=== PATIENT | female | born 1960 | race Caucasian/White ===

== ENCOUNTER → 2017-05-19 | Outpatient (CLI) | payer BC ==
--- NOTE | 2017-05-20 09:51 | MM ---
Reason for exam: screening (asymptomatic). Last mammogram was performed 1 year and 7 months ago. History: Patient is postmenopausal. Family history of breast cancer in maternal aunt. Benign core biopsy of the left breast, June 07, 1998. Benign excisional biopsy of the left breast. Excisional biopsy of the right breast. Physical Findings: A clinical breast exam by your physician is recommended on an annual basis and results should be correlated with mammographic findings. MG 3D Screening Mammo W/Cad Bilateral CC and MLO view(s) were taken. Prior study comparison: October 23, 2015, bilateral MG screening mammo w CAD. August 11, 2014, bilateral MG diagnostic mammo w CAD PASCUAL. August 11, 2014, right breast US breast RT. The breast tissue is heterogeneously dense. This may lower the sensitivity of mammography. Finding: There are typically benign vascular calcifications in both breasts. There is no discrete abnormality. ASSESSMENT: Negative, BI-RAD 1 RECOMMENDATION: Routine screening mammogram of both breasts in 1 year.
== END | disposition home or self-care (01) ==
LOC: RADMAMWWP 16:18
PROVIDERS: ATTEND Obstetrics & Gynecology
DX: Z12.31 Encounter for screening mammogram for malignant neoplasm of breast (principal)
CPT/HCPCS: 77063; G0202

== ENCOUNTER → 2018-10-15 | Outpatient (CLI) | payer BC ==
--- NOTE | 2018-10-19 09:30 | MM ---
Reason for exam: screening (asymptomatic). Last mammogram was performed 1 year and 5 months ago. History: Patient is postmenopausal. Family history of breast cancer in maternal aunt. Benign core biopsy of the left breast, June 07, 1998. Benign excisional biopsy of the left breast. Excisional biopsy of the right breast. Physical Findings: A clinical breast exam by your physician is recommended on an annual basis and results should be correlated with mammographic findings. MG 3D Screening Mammo W/Cad Bilateral CC and MLO view(s) were taken. Prior study comparison: May 19, 2017, bilateral MG 3d screening mammo w/cad. October 23, 2015, bilateral MG screening mammo w CAD. The breast tissue is heterogeneously dense. This may lower the sensitivity of mammography. There is chronic nodularity in the right breast better seen on 3D images and in the left breast upper outer quadrant. No significant changes when compared with prior studies. ASSESSMENT: Benign, BI-RAD 2 RECOMMENDATION: Routine screening mammogram of both breasts in 1 year.
== END | disposition home or self-care (01) ==
LOC: RADMAMWWP 16:08
PROVIDERS: ATTEND Obstetrics & Gynecology
DX: Z12.31 Encounter for screening mammogram for malignant neoplasm of breast (principal)
CPT/HCPCS: 77063; 77067

== ENCOUNTER → 2020-06-28 | Outpatient (CLI) | payer BC ==
--- NOTE | 2020-06-28 10:37 | MM ---
Reason for exam: clinical finding. Last mammogram was performed 1 year and 8 months ago. History: Patient is postmenopausal. Family history of breast cancer in maternal aunt. Benign core biopsy of the left breast, June 07, 1998. Benign excisional biopsy of the left breast. Excisional biopsy of the right breast. Physical Findings: Nurse Summary: 1cm nodule in the right breast at 10 o'clock (nurse tim). MG 3D Diag Mammo W/Cad PASCUAL Bilateral CC and MLO view(s) were taken. XCCL view(s) were taken of the right breast. Prior study comparison: October 15, 2018, bilateral MG 3d screening mammo w/cad. May 19, 2017, bilateral MG 3d screening mammo w/cad. Finding #1: There are circumscribed oval masses in both breasts. Finding #2: There are typically benign calcifications in both breasts. These results were verbally communicated with the patient and result sheet given to the patient on 06/28/20. ASSESSMENT: Incomplete: need additional imaging evaluation, BI-RAD 0 RECOMMENDATION: Ultrasound of the right breast.
--- NOTE | 2020-06-28 10:39 | USB ---
Reason for exam: additional evaluation requested from abnormal screening. History: Patient is postmenopausal. Family history of breast cancer in maternal aunt. Benign core biopsy of the left breast, June 07, 1998. Benign excisional biopsy of the left breast. Excisional biopsy of the right breast. US Breast RT Right complete breast ultrasound includes all four quadrants, the retroareolar region and axilla. Finding demonstrates a 1.9 x 1.0 x 1.9cm oval, solid, hyperechoic lesion at 5 o'clock. These results were verbally communicated with the patient and result sheet given to the patient on 06/28/20. ASSESSMENT: Benign, BI-RAD 2 (likely lipoma) RECOMMENDATION: Routine screening mammogram of both breasts in 1 year.
== END | disposition home or self-care (01) ==
LOC: RADMAMWWP 06:58
PROVIDERS: ATTEND Obstetrics & Gynecology
DX: N63.10 Unspecified lump in the right breast, unspecified quadrant (principal); N63.20 Unspecified lump in the left breast, unspecified quadrant; R92.8 Other abnormal and inconclusive findings on diagnostic imaging of breast; Z80.3 Family history of malignant neoplasm of breast
CPT/HCPCS: 77062; 77066

== ENCOUNTER → 2021-01-07 | Day surgery (SDC) | payer BC ==
[2021-01-03 15:46] VITALS: BMI 28.2
[~2021-01-07] MED LIST: SODIUM CHLORIDE 0.9% 1,000 ML IV SCH
[2021-01-07 11:01] VITALS: BP 134/73; PULSE 54; RESP 16; TEMP 98.1
--- NOTE | 2021-01-07 11:46 | P.EPPROC ---
- EP Procedure Note Electrophysiology Procedure Note: Diagnosis Persistent atrial fibrillation, symptomatic Procedure planned Electrical cardioversion after loading with flecainide 100 mg twice daily Procedure details Procedure was canceled Patient was in sinus rhythm 100 mg twice a day flecainide The twelve-lead EKG shows sinus mechanism normal OR narrow QRS normal ST segments Impression Chemical conversion to sinus rhythm with flecainide 100 mg twice daily Plan Stop Cardizem completely Reduce Toprol-XL to 25 mg by mouth once daily only Reduce flecainide to 50 mg twice daily If she has a breakthrough episode of atrial fibrillation she will wait for about 20 minutes If it does not terminate spontaneously she will take an extra dose of flecainide, 50 mg 1 over above her regular dose I will see her in the office in about 2-3 weeks
== END | disposition home or self-care (01) ==
LOC: CATHEP 10:22
PROVIDERS: ATTEND Internal Medicine Clinical Cardiac Electrophysiology
DX: I48.19 Other persistent atrial fibrillation (principal); Z53.8 Procedure and treatment not carried out for other reasons; Z79.899 Other long term (current) drug therapy; Z79.01 Long term (current) use of anticoagulants

== ENCOUNTER → 2021-08-21 | Outpatient (CLI) | payer BC ==
--- NOTE | 2021-08-26 14:38 | MM ---
Reason for exam: screening (asymptomatic). Last mammogram was performed 1 year and 2 months ago. History: Patient is postmenopausal. Family history of breast cancer in maternal aunt. Benign core biopsy of the left breast, June 07, 1998. Benign excisional biopsy of the left breast. Excisional biopsy of the right breast. Physical Findings: A clinical breast exam by your physician is recommended on an annual basis and results should be correlated with mammographic findings. MG 3D Screening Mammo W/Cad Bilateral CC and MLO view(s) were taken. XCCL view(s) were taken of the right breast. Prior study comparison: June 28, 2020, bilateral MG 3d diag mammo w/cad PASCUAL. October 15, 2018, bilateral MG 3d screening mammo w/cad. The breast tissue is heterogeneously dense. This may lower the sensitivity of mammography. No significant changes when compared with prior studies. ASSESSMENT: Benign, BI-RAD 2 RECOMMENDATION: Routine screening mammogram of both breasts in 1 year.
== END | disposition home or self-care (01) ==
LOC: RADMAMWWP 16:01
PROVIDERS: ATTEND Obstetrics & Gynecology
DX: Z12.31 Encounter for screening mammogram for malignant neoplasm of breast (principal); Z78.0 Asymptomatic menopausal state; Z80.3 Family history of malignant neoplasm of breast
CPT/HCPCS: 77063; 77067

== ENCOUNTER → 2021-12-31 | Outpatient (CLI) | payer BC ==
--- NOTE | 2021-12-31 12:52 | BD ---
EXAMINATION TYPE: Axial Bone Density DATE OF EXAM: 12/31/2021 COMPARISON: DEXA bone scan 2010 CLINICAL HISTORY: 61 year old Female. ICD-10 CODE: M81.0 AGE RELATED OSTEOPOROSIS Height: 66 Weight: 167.9 FRAX RISK QUESTIONS: Alcohol (3 or more units per day): NO Family History (Parent hip fracture): NO Glucocorticoids (More than 3mos): no (Ex: prednisone, prednisolone, methylprednisolone, dexamethasone, and hydrocortisone). History of Fracture in Adulthood: yes Secondary Osteoporosis: 1. Type 1 Diabetes: no 2. Hyperthyroidism: no 3. Menopause before 45: yes 4. Malnutrition: no 5. Chronic liver disease: no Rheumatoid Arthritis: no Current Tobacco Use: no RISK FACTORS HISTORY OF: History of Wrist Fracture: rt wrist When: as a child Surgery to Spine/Hip(right/left)/Wrist (right/left): no Family History of Osteoporosis: no Active: yes Diet low in dairy products/other sources of calcium: no Postmenopausal woman: yes Lost more than 2 inches in height since high school: no MEDICATIONS: Additional History: EXAM MEASUREMENTS: Bone mineral densitometry was performed using the [employer]encia System. Bone mineral density as measured about the Lumbar spine is: ----- L1-L4(G/cm2): 1.004 T Score Values are as follows: ----- L1: -0.8 ----- L2: -2.0 ----- L3: -1.6 ----- L4: -1.5 ----- L1-L4: -1.5 Bone mineral density has: decreased -13.2 % since study of: 08.11.2011 Bone mineral density about the R hip (g/cm2): 0.775 Bone mineral density about the L hip (g/cm2): 0.886 T Score values are as follows: -----R Neck: -1.9 -----L Neck: -1.1 -----R Total: -0.8 -----L Total: -1.0 Bone mineral density has: decreased -6.7 % since study of: 08.11.2011 Bone mineral density about the L Wrist (g/cm2): 0.609 T Score values are as follows: -----Dist. R+U: -1.1 -----Prox. R+U: -1.4 -----Radius total: -1.1 Bone mineral density : baseline FRAX%s: The graph provided illustrates a 16.6% chance for a major osteoporotic fx and a 2.3% chance f or the hips probability for fx in 10 years time. IMPRESSION: Osteopenia (T Score between -2.5 and -1) is now present. There is slightly increased risk of fracture and the patient may be considered for treatment. Re-Screen 2-5 years. NOTE: T-SCORE=SD OF THE YOUNG ADULT MEAN.
== END | disposition home or self-care (01) ==
LOC: RADBDWWP 11:12
PROVIDERS: ATTEND Internal Medicine Geriatric Medicine
DX: M85.89 Other specified disorders of bone density and structure, multiple sites (principal)
CPT/HCPCS: 77080

== ENCOUNTER → 2023-05-07 | Outpatient (CLI) | payer MEDICARE ==
[2023-05-07 16:22] LABS: Basophils # (A) 0.04 X 10*3/uL (0.00-0.10); Basophils % (A) 0.8 %; Eosinophils # (A) 0.15 X 10*3/uL (0.04-0.35); Eosinophils % (A) 2.8 %; HCT 37.9 % (37.2-46.3); HGB 12.3 d/dL (12.0-15.0); Lymphocytes # (A) 1.34 X 10*3/uL (0.90-5.00); Lymphocytes % (A) 25.3 %; MCH 32.6 pg (27.0-32.0); MCHC 32.5 d/dL (32.0-37.0); MCV 100.5 FL (80.0-97.0); Mean Platelet Volume 10.4 FL (9.5-12.2); Monocytes # (A) 0.77 X 10*3/uL (0.20-1.00); Monocytes % (A) 14.6 %; NRBC Per 100 WBC 0 X 10*3/uL (0.00-0.01); Neutrophils # (A) 2.98 X 10*3/uL (1.80-7.70); Neutrophils % (A) 56.3 %; Platelet Count 194 X 10*3/uL (140-440); RBC 3.77 X 10*6/uL (4.10-5.20); RDW 12.9 % (11.5-14.5); WBC 5.29 X 10*3/uL (4.50-10.00)
[2023-05-07 16:38] LABS: ALT 122 U/L (8-44); AST 51 U/L (13-35); Albumin 4.2 d/dL (3.8-4.9); Albumin/Globulin Ratio 1.83 Ratio (1.60-3.17); Alkaline Phosphatase 76 U/L (41-126); BUN/Creat Ratio 20.14 Ratio (12.00-20.00); Blood Urea Nitrogen 14.1 mg/dL (9.0-27.0); Calcium 9.3 mg/dL (8.7-10.3); Carbon Dioxide 25.9 mmol/L (21.6-31.8); Chloride 106 mmol/L (96-109); Globulin 2.3 d/dL (1.6-3.3); Glucose 100 mg/dL (70-110); LDL Cholesterol,Calculated 132.7 mg/dL (0.0-131.0); Magnesium 2.1 mg/dL (1.5-2.4); Potassium 4.6 mmol/L (3.5-5.5); Sodium 142 mmol/L (135-145); Total Bilirubin 0.6 mg/dL (0.3-1.2); Total Protein 6.5 d/dL (6.2-8.2)
== END | disposition home or self-care (01) ==
LOC: LABWHC1 08:57
PROVIDERS: ATTEND Internal Medicine Clinical Cardiac Electrophysiology
DX: I10 Essential (primary) hypertension (principal); I48.19 Other persistent atrial fibrillation; E78.5 Hyperlipidemia, unspecified
CPT/HCPCS: 36415; 80053; 80061; 83735; 84443; 85025

== ENCOUNTER → 2023-05-07 | Outpatient (CLI) | payer MEDICARE ==
--- NOTE | 2023-05-09 17:08 | MM ---
Reason for Exam: Screening (asymptomatic). Last mammogram was performed 1 year(s) and 9 month(s) ago. Patient History: Menarche at age 11. First Full-Term at age 20. Postmenopausal. Excisional Biopsy on the Right side. Benign Excisional Biopsy on the left side. 06/07/1998, Benign Core Biopsy on the left side. Maternal aunt had breast cancer, age 60. Risk Values: Love 5 year model risk: 2.2%. NCI Lifetime model risk: 8.3%. Prior Study Comparison: 10/15/2018 Bilateral Screening Mammogram, [facility]. 06/28/2020 Bilateral Diagnostic Mammogram, [facility]. 08/21/2021 Bilateral Screening Mammogram, [facility]. Tissue Density: The breast tissue is heterogeneously dense. This may lower the sensitivity of mammography. Findings: Analyzed By CAD. There is no suspicious group of microcalcifications or new suspicious mass in either breast. Overall Assessment: Benign, BI-RAD 2 Management: Screening Mammogram of both breasts in 1 year. . Patient should continue monthly self-breast exams. A clinical breast exam by your physician is recommended on an annual basis. This exam should not preclude additional follow-up of suspicious palpable abnormalities. Note on Love scores and lifetime risk: 1. A Love score greater than 3% is considered moderate risk. If this is the case, consider specialist referral to assess eligibility for a risk reducing agent. 2. If overall lifetime risk for the development of breast cancer is 20% or higher, the patient may qualify for future screening with alternating mammogram and breast MRI. Electronically signed and approved by: Noé Flower M.D. Radiologist
== END | disposition home or self-care (01) ==
LOC: RADMAMWWP 16:02
PROVIDERS: ATTEND Obstetrics & Gynecology
DX: Z12.31 Encounter for screening mammogram for malignant neoplasm of breast (principal); Z78.0 Asymptomatic menopausal state; Z80.3 Family history of malignant neoplasm of breast
CPT/HCPCS: 77063; 77067

== ENCOUNTER 2023-06-09 07:41 | Day surgery (SDC) | payer MEDICARE ==
[2023-06-05 16:08] VITALS: BMI 29.2
[2023-06-09 08:33] LABS: Basophils % (A) 1 %; Eosinophils # (A) 0.1 k/uL (0-0.7); Eosinophils % (A) 3 %; HCT 45.2 % (34.0-46.0); HGB 14.6 gm/dL (11.4-16.0); Lymphocytes # (A) 1.3 k/uL (1.0-4.8); Lymphocytes % (A) 32 %; MCHC 32.3 g/dL (31.0-37.0); Mean Platelet Volume 7.8; Monocytes # (A) 0.4 k/uL (0-1.0); Monocytes % (A) 10 %; Neutrophils # (A) 2.1 k/uL (1.3-7.7); Neutrophils % (A) 52 %; Platelet Count 217 k/uL (150-450); RBC 4.43 m/uL (3.80-5.40); WBC 4.1 k/uL (3.8-10.6)
[2023-06-09 08:44] LABS: African American GFR (CKD) >90 (>60 ml/min/1.73 sqM); Anion Gap 10 mmol/L; Blood Urea Nitrogen 16 mg/dL (7-17); Calcium 9.6 mg/dL (8.4-10.2); Carbon Dioxide 25 mmol/L (22-30); Chloride 105 mmol/L (98-107); Glucose 99 mg/dL (74-99); Non-African American GFR(CKD) >90 (>60 ml/min/1.73 sqM); Potassium 4.4 mmol/L (3.5-5.1); Sodium 140 mmol/L (137-145)
[2023-06-09] MEDS ORDERED: HEPARIN SODIUM,PORCINE 10,000 UNIT/ML 1 ML VIAL ONE (09:30)
[2023-06-09] MEDS ORDERED: ATROPINE SULFATE 0.1 MG/ML 10ML SYRINGE ONE (09:30)
[2023-06-09] MEDS ORDERED: PROPOFOL 10 MG/ML 20 ML VIAL IV ONE (09:30)
[2023-06-09] MEDS ORDERED: MIDAZOLAM 2 MG/2 ML VIAL ONE (09:30)
[2023-06-09] MEDS ORDERED: fentaNYL (PF) 50 MCG/ML 2 ML AMP ONE (09:30)
[2023-06-09] MEDS ORDERED: LIDOCAINE 1% INJ 10MG/ML (20 ML MDV) ONE (09:30)
[2023-06-09] MEDS ORDERED: SUCCINYLCHOLINE CHLORIDE 200 MG/10 ML VIAL IV ONE (09:30)
[2023-06-09] MEDS ORDERED: ONDANSETRON 4 MG/2 ML VIAL ONE (09:30)
--- NOTE | 2023-06-09 09:57 | P.HPCAR ---
History of Present Illness This is Dr. Rolle dictating an H/P on this patient The patient was interviewed and examined IMPRESSION / ASSESSMENT: Recurrent atrial fibrillation now persistent, failed flecainide Symptomatic with dizziness and exhaustion No hypertension Moderate mitral regurgitation and moderate pulmonic regurgitation PLAN: Proceed with A. fib ablation Continue anticoagulation HPI Patient continues to have episodes of atrial fibrillation. Recently there has been a change in the character of atrial fibrillation and she did not respond to flecainide the last 2 breakthru episodes Denies any fever chills chest discomfort or recent loss of consciousness ROS: No fever chills or rigors, no cough, phlegm or expectoration, no nausea, vomiting or diarrhea, no hematuria, dysuria, no musculoskeletal complaints, no strokes or seizures, no skin lesions. EXAMINATION: Afebrile, pulse rate 73 Blood pressure elevated today Heart sounds S1 and S2 are normal no murmurs Breath sounds are clear No carotid bruits No JVD No lower extremity edema REVIEW OF LABS, ECG & MEDICAL DATA amlodipine, ELIQUIS, metoprolol and flecainide Physical Exam Vitals: Vital Signs Temp Pulse Resp BP Pulse Ox 06/09/23 08:22 98.2 F 73 16 182/72 97 Intake and Output 06/08/23 06/09/23 06/09/23 22:59 06:59 14:59 Intake Total 100 Balance 100 Intake: IV 100 Other: Weight 75.2 kg Past Medical History Past Medical History: Atrial Fibrillation, Osteoarthritis (OA) Additional Past Medical History / Comment(s): SEE DR ROLLE'S H&P. History of Any Multi-Drug Resistant Organisms: None Reported Past Surgical History: Orthopedic Surgery Additional Past Surgical History / Comment(s): fx ankle surgery, colonoscopy, bone fusion in right great toe Past Anesthesia/Blood Transfusion Reactions: No Reported Reaction Past Psychological History: No Psychological Hx Reported Smoking Status: Former smoker Past Alcohol Use History: Daily Additional Past Alcohol Use History / Comment(s): quit smoking 10 yrs ago, smoked for 25-30 years . drinks 1 glass wine daily Past Drug Use History: None Reported - Past Family History Brother(s) Family Medical History: Cancer Physical Examination Vital Signs Temp Pulse Resp BP Pulse Ox 06/09/23 08:22 98.2 F 73 16 182/72 97 Intake and Output 06/08/23 06/09/23 06/09/23 22:59 06:59 14:59 Intake Total 100 Balance 100 Intake: IV 100 Other: Weight 75.2 kg Results 06/09/23 08:20 06/09/23 08:20 CBC 06/09/23 Range/Units 08:20 WBC 4.1 (3.8-10.6) k/uL RBC 4.43 (3.80-5.40) m/uL Hgb 14.6 (11.4-16.0) gm/dL Hct 45.2 (34.0-46.0) % Plt Count 217 (150-450) k/uL Comprehensive Metabolic Panel 06/09/23 Range/Units 08:20 Sodium 140 (137-145) mmol/L Potassium 4.4 (3.5-5.1) mmol/L Chloride 105 (98-107) mmol/L Carbon Dioxide 25 (22-30) mmol/L BUN 16 (7-17) mg/dL Creatinine 0.56 (0.52-1.04) mg/dL Glucose 99 (74-99) mg/dL Calcium 9.6 (8.4-10.2) mg/dL Current Medications Generic Name Dose Route Start Last Admin Trade Name Freq PRN Reason Stop Dose Admin Sodium Chloride 1,000 mls @ 50 mls/hr 06/09/23 06:01 06/09/23 08:20 Saline 0.9% IV 07/09/23 06:02 100 mls .Q20H TRINIDAD Administration Intake and Output 06/08/23 06/09/23 06/09/23 22:59 06:59 14:59 Intake Total 100 Balance 100 Intake: IV 100 Other: Weight 75.2 kg Patient Weight 06/10/23 06:59 Weight 75.2 kg 06/09/23 08:20 06/09/23 08:20
[2023-06-09] MEDS ORDERED: LIDOCAINE 1% INJ 10MG/ML (30 ML VIAL-PF) SQ ONE (10:09)
[2023-06-09] MEDS ORDERED: HEPARIN SOD,PORK IN 0.45% NACL 25,000 UNIT in 0.45% NACL 1 250ML.BAG IV ONE (10:10)
[2023-06-09] MEDS ORDERED: IOPAMIDOL-370 100ML BTL INJ ONE (12:06)
[2023-06-09] MEDS ORDERED: ACETAMINOPHEN TAB 325 MG TAB PO PRN (12:33)
[2023-06-09] MEDS ORDERED: ACETAMINOPHEN IV (For NPO) 1,000 MG in EMPTY BAG 1 BAG IVPB ONE (12:33)
--- NOTE | 2023-06-09 12:33 | P.EPPROC ---
- EP Procedure Note Electrophysiology Procedure Note: PROCEDURE A. fib ablation with pulmonary vein isolation/left atrial septal ablation DIAGNOSIS Previously paroxysmal atrial fibrillation Recent onset of Persistent Atrial fibrillation, symptomatic, refractory to therapy RESULT No left atrial appendage mass seen on intracardiac echo Mildly thickened pericardium, no effusion Large common left-sided veins requiring multiple segmental level cryoablations Successful A. fib ablation/pulmonary vein isolation of all veins using cryo- ablation Complete entrance block in all 4 veins confirmed Phrenic nerve paresis, transient, with right superior pulmonary vein isolation, 169 seconds, -50 Immediate onset recovery and complete recovery in 5-10 minutes Left atrial septal ablation Esophageal deflection YES PROCEDURE DETAILS Written informed consent prior to procedure. Patient brought to the EP lab. General anesthesia given. Heparin administered. A city maintained above 300 seconds Both groins prepped and draped per protocol and venous sheaths placed. Esophagus intubated, circa catheter for temperature monitoring an endoscope for possible esophageal deflection. Phrenic nerve monitoring performed. Esophageal temperature monitoring performed. Esophageal deflection performed if circa catheter overlapping with the balloon or circa temperature less than 27.5C Intracardiac echocardiography performed. Pericardium evaluated. Left atrial appendage evaluated. Left atrium evaluated along with pulmonary veins Transseptal catheterization performed under fluoroscopic guidance and intracardiac echo guidance Cryoablation sheath exchanged, balloon catheter along with achieve catheter placed in the left atrium. Pulmonary veins isolated in the following sequence: Left superior pulmonary vein followed by left inferior pulmonary vein, followed by right inferior pulmonary vein and lastly right superior pulmonary vein. Phrenic nerve stimulation along with capture thresholds within the SVC and right superior pulmonary vein to identify the phrenic nerve proximity to the cryo- balloon. Pulmonary veins isolated and confirmed with entrance and exit block. Phrenic nerve integrity confirmed at the end of the procedure Ablation of the left atrial septum performed, posterior to the transseptal access site. A 3 minute cryoablation lesion applied. And ablation of atrial electrograms performed successfully Diagnostic catheters for the high right atrium, His bundle, coronary sinus placed. LA and RA pressures recorded RA pressure: LA pressure: Diagnostic EP study with coronary sinus pacing and recording Baseline measurements: Sinus cycle length 1018 ms, ND interval 116 ms, QRS 180 m s and QT interval 446 ms AH 67 and HV 50 ms Sinus recovery times were 1363, 1438 and 1554 Mildly prolonged corrected sinus node recovery times at a pacing cycle length of 400 ms AV node Wenckebach block 310 ms AV node Wenckebach block from the high right atrium 390 ms Burst stimulation from the high right atrium from 400 ms down to 240 ms. Short nonsustained atrial tachycardia lasting less than a second No sustained atrial fibrillation induced after PVI IV atropine 1 mg given AV node Wenckebach block improved to 280 ms Venous sheaths were removed and hemostasis assured with a closure device. Patient extubated and transferred to recovery Increase procedural time During ablation multiple attempts had to be made to move the esophagus a safe distance of the from the pulmonary vein draining cryoablation, to avoid excessive thermal cooling of the esophagus This took extra time and effort to keep the esophagus a safe distance away from the cryoablation balloon. Large left common vein requiring multiple segmental antral level ablations for complete isolation. This took longer than usual PROCEDURES PERFORMED Diagnostic EP study CS pacing and recording Left and right transseptal catheterization Catheter the mapping of the tachycardia Intracardiac echocardiography Pulmonary vein isolation with transseptal and comprehensive EPS, [id number] Extended procedure duration on account of large left common pulmonary vein Drug infusion, +[id number] Linear ablation, left atrium, +[id number]
[2023-06-09] MEDS: FLECAINIDE 50 MG TAB PO SCH (19:44)
[2023-06-09] MEDS: APIXABAN 5 MG TAB PO SCH (19:44)
[2023-06-10 09:00] VITALS: BP 133/55; PULSE 70; RESP 16; TEMP 98.5
[2023-06-10] MEDS ORDERED: METOPROLOL SUCCINATE (ER) 25 MG TAB.ER.24H PO SCH (09:00)
[2023-06-10] MEDS ORDERED: amLODIPine 2.5 MG TAB PO SCH (09:00)
[2023-06-10] MEDS: FLECAINIDE 50 MG TAB PO SCH (09:28)
[2023-06-10] MEDS: APIXABAN 5 MG TAB PO SCH (09:28)
--- NOTE | 2023-06-10 10:13 | P.DS ---
Providers Attending physician: Israel Rolle Primary care physician: [facility] Hospital Course: This is a 63-year-old female who underwent A. fib ablation with pulmonary vein isolation/left atrial septal ablation. Patient is doing well post procedure with no complications noted. She denies any chest pain or pressure. She denies any shortness of breath. She was deemed stable for discharge home today per Dr. Rolle. Please see EMR for further hospital course details. Discharge diagnosis Previously paroxysmal atrial fibrillation Recent onset of Persistent Atrial fibrillation, symptomatic, refractory to therapy Nurse practitioner note has been reviewed by physician. Signing provider agrees with the documented findings, assessment, and plan of care. Plan - Discharge Summary Discharge Rx Participant: No New Discharge Prescriptions: Continue Apixaban [Eliquis] 5 mg PO BID Flecainide [Tambocor] 50 mg PO Q12HR #180 tablet Metoprolol Succinate (ER) [Toprol XL] 25 mg PO DAILY #90 tab amLODIPine BESYLATE 2.5 mg PO DAILY Discharge Medication List Apixaban [Eliquis] 5 mg PO BID 01/03/21 [History] Flecainide [Tambocor] 50 mg PO Q12HR #180 tablet 01/07/21 [Rx] Metoprolol Succinate (ER) [Toprol XL] 25 mg PO DAILY #90 tab 01/07/21 [Rx] amLODIPine BESYLATE 2.5 mg PO DAILY 06/05/23 [History] Follow up Appointment(s)/Referral(s): Israel Rolle MD [STAFF PHYSICIAN] - 06/17/23 10:00 am Patient Instructions/Handouts: Cardiac Ablation (DC) Activity/Diet/Wound Care/Special Instructions: Post EP study - Ablation instructions 1. Keep access sites dry for 2 days. 2. No heavy lifting or straining for 2 days. 3. Avoid bending the hips repeatedly for 2 days. 4. You may go up and down stairs slowly Call if the following is noted 1. Bleeding, increasing swelling or pain at the access sites. 2. Increasing chest discomfort, especially upon taking a deep breath. 3. Increasing shortness of breath, at rest or with exertion. 4. Undue cough / phlegm 5. Difficulty or pain while swallowing. 6. Pain or change in color in the extremities. 7. Fever, chills, rigors. 8. Increasing headache or neurologic symptoms. 9. Dizziness, fainting, palpitations Discharge Disposition: HOME SELF-CARE
== END 2023-06-10 10:15 | disposition home or self-care (01) ==
LOC: CATHEP 07:41 → 6NMEDSUR 12:15 → CATHEP 06-10 10:15
PROVIDERS: ATTEND Internal Medicine Clinical Cardiac Electrophysiology
DX: I48.0 Paroxysmal atrial fibrillation (principal); I48.19 Other persistent atrial fibrillation; I47.19 Other supraventricular tachycardia; I37.1 Nonrheumatic pulmonary valve insufficiency; M19.90 Unspecified osteoarthritis, unspecified site; Z87.891 Personal history of nicotine dependence; Z86.59 Personal history of other mental and behavioral disorders; Z79.899 Other long term (current) drug therapy
CPT/HCPCS: 93656; 86900; 86901; 80048; 84443; 85025; 86850; C1894 ×2; C1769 ×3; C1760; C1730 ×2; C1759; C1893; C1733; C1766; J2250; J0330; J1644 ×2; J2405; J2001 ×2; J0461; J3010; J2704; Q9967; 93662

== ENCOUNTER → 2024-06-02 | Outpatient (CLI) | payer MEDICARE ==
--- NOTE | 2024-06-03 14:12 | MM ---
Reason for Exam: Screening (asymptomatic). Last mammogram was performed 1 year(s) and 1 month(s) ago. Patient History: Menarche at age 11. First Full-Term at age 20. Postmenopausal. Excisional Biopsy on the Right side. Benign Excisional Biopsy on the left side. 06/07/1998, Benign Core Biopsy on the left side. Maternal aunt had breast cancer, age 60. Risk Values: Love 5 year model risk: 2.3%. NCI Lifetime model risk: 8.0%. Prior Study Comparison: 06/28/2020 Bilateral Diagnostic Mammogram, [facility]. 08/21/2021 Bilateral Screening Mammogram, [facility]. 05/07/2023 Bilateral MG 3D screening mammo w/cad, [facility]. Tissue Density: The breasts are heterogeneously dense, which may obscure small masses. Findings: Analyzed By CAD. There is no suspicious group of microcalcifications or new suspicious mass in either breast. Overall Assessment: Benign, BI-RAD 2 Management: Screening Mammogram of both breasts in 1 year. . Patient should continue monthly self-breast exams. A clinical breast exam by your physician is recommended on an annual basis. This exam should not preclude additional follow-up of suspicious palpable abnormalities. Note on Love scores and lifetime risk: 1. A Love score greater than 3% is considered moderate risk. If this is the case, consider specialist referral to assess eligibility for a risk reducing agent. 2. If overall lifetime risk for the development of breast cancer is 20% or higher, the patient may qualify for future screening with alternating mammogram and breast MRI. [facility], , 06/03/2024 2:09 PM. Electronically signed and approved by: Abdirahman Valle M.D. Radiologis
== END | disposition home or self-care (01) ==
LOC: RADMAMWWP 12:46
PROVIDERS: ATTEND Internal Medicine Geriatric Medicine
DX: Z12.31 Encounter for screening mammogram for malignant neoplasm of breast
CPT/HCPCS: 77063; 77067

== ENCOUNTER → 2024-08-18 | Outpatient (CLI) | payer MEDICARE ==
[2024-08-18 10:48] LABS: Partial Thromboplastin Time 24.9 sec (22.0-30.0); Prothrombin Time 10.8 sec (10.0-12.5)
[2024-08-18 15:02] LABS: HGB 13.2 g/dL (12.0-15.0); MCH 31.7 pg (27.0-32.0); MCV 95.9 FL (80.0-97.0); Mean Platelet Volume 10.7 FL (9.5-12.2); NRBC Per 100 WBC 0 X 10*3/uL (0.00-0.01); Platelet Count 236 X 10*3/uL (140-440); RBC 4.17 X 10*6/uL (4.10-5.20); RDW 12.7 % (11.5-14.5); WBC 3.67 X 10*3/uL (4.50-10.00)
[2024-08-18 15:10] LABS: ALT 24 U/L (8-44); AST 18 U/L (13-35); Albumin 4.1 g/dL (3.8-4.9); Albumin/Globulin Ratio 1.64 Ratio (1.60-3.17); Alkaline Phosphatase 57 U/L (41-126); Blood Urea Nitrogen 17.7 mg/dL (9.0-27.0); Calcium 9.3 mg/dL (8.7-10.3); Carbon Dioxide 26.2 mmol/L (21.6-31.8); Chloride 106 mmol/L (96-109); Globulin 2.5 g/dL (1.6-3.3); Glucose 101 mg/dL (70-110); Potassium 4.4 mmol/L (3.5-5.5); Sodium 141 mmol/L (135-145); Total Bilirubin 0.4 mg/dL (0.3-1.2); Total Protein 6.6 g/dL (6.2-8.2)
== END | disposition home or self-care (01) ==
LOC: LABPAT 10:07
PROVIDERS: ATTEND Orthopaedic Surgery
DX: Z01.818 Encounter for other preprocedural examination (principal); Z22.322 Carrier or suspected carrier of Methicillin resistant Staphylococcus aureus
CPT/HCPCS: 80053; 85027; 85610; 85730; 86850; 86900; 86901; 87070

== ENCOUNTER 2024-08-29 07:24 | Day surgery (SDC) | payer MEDICARE ==
[2024-08-22 16:17] VITALS: BMI 23.3
[~2024-08-29 07:24] MED LIST changes: +LIDOCAINE 1% (10MG/ML) FOR IV START INTRADERMA PRN; -SODIUM CHLORIDE 0.9% 1,000 ML IV SCH; +TRANEXAMIC 1,000 MG/100ML-NACL 1,000 MG in SALINE 1 100ML.BAG IVPB PRN
[2024-08-29] MEDS: ACETAMINOPHEN TAB 500 MG TAB PO PRN (08:20)
[2024-08-29] MEDS: ONDANSETRON 4 MG/2 ML VIAL IVP ONE (08:21)
[2024-08-29] MEDS: LACTATED RINGERS 1,000 ML IV SCH (08:21)
[2024-08-29] MEDS: GABAPENTIN 300 MG CAP PO PRN (08:21)
[2024-08-29] MEDS: DEXAMETHASONE SOD PHOSPHATE 4 MG/ML 1 ML VIAL IV ONE (08:21)
[2024-08-29] MEDS: MELOXICAM 7.5 MG TAB PO PRN (08:21)
[2024-08-29] MEDS: IV FLUID CONTINUATION 1,000 ML IV ONE ×2 (08:31→12:38)
[2024-08-29] MEDS ORDERED: HYDROmorphone 0.5 MG/0.5 ML SYRINGE IVP PRN ×3 (08:42)
[2024-08-29] MEDS ORDERED: ONDANSETRON 4 MG/2 ML VIAL IVP PRN (08:42)
[2024-08-29] MEDS ORDERED: NALOXONE 0.4 MG/ML 1 ML VIAL IV PRN (08:42)
[2024-08-29] MEDS ORDERED: HYDROcodone/APAP 7.5-325MG 1 EACH TAB PO PRN ×2 (08:44)
[2024-08-29] MEDS ORDERED: SODIUM CHLORIDE 0.9% 1,000 ML IV SCH (08:45)
--- NOTE | 2024-08-29 08:47 | P.ANPRN ---
Procedure Note - Anesthesia - Nerve Block Performed Right Chuy Single Time Out Performed: Yes Date of Procedure: 08/29/24 Procedure Start Time: 08:39 Procedure Stop Time: 08:47 Location of Patient: PreOp Indication: Acute Post-Operative Pain, Requested by Surgeon Sedation Type: Sedate with meaningful contact maintained Preparation: Sterile Prep Position: Supine Needle Types: Pajunk Needle Gauge: 21 Ultrasound used to visualize needle placement: Yes Ultrasound used to observe medication spread: Yes Injectate: 0.5% Ropivacaine (see comment for volume) (20 ml + 10 ml NS + 4 mg Dexamethasone) Blood Aspirated: No Pain Paresthesia on Injection Noted: No Resistance on Injection: Normal Image Stored and Saved: Yes Events: Uneventful and Well Tolerated
[2024-08-29] MEDS: MIDAZOLAM 2 MG/2 ML VIAL IV PRN (08:51)
[2024-08-29] MEDS: fentaNYL (PF) 50 MCG/ML 2 ML AMP IVP PRN (08:51)
[2024-08-29] MEDS ORDERED: SUCCINYLCHOLINE CHLORIDE 200 MG/10 ML VIAL IV ONE (09:00)
[2024-08-29] MEDS ORDERED: PROPOFOL 10 MG/ML 20 ML VIAL IV ONE (09:00)
[2024-08-29] MEDS ORDERED: ROPIVACAINE 5 MG/ML 30 ML VIAL ONE (09:00)
[2024-08-29] MEDS ORDERED: NEOSTIGMINE 1 MG/ML 10 ML VIAL ONE (09:00)
[2024-08-29] MEDS ORDERED: ROCURONIUM 10 MG/ML (5 ML VIAL) IV ONE (09:00)
[2024-08-29] MEDS ORDERED: LIDOCAINE 1% INJ 10MG/ML (20 ML MDV) ONE (09:00)
[2024-08-29] MEDS ORDERED: MIDAZOLAM 2 MG/2 ML VIAL ONE (09:00)
[2024-08-29] MEDS ORDERED: fentaNYL (PF) 50 MCG/ML 2 ML AMP ONE (09:00)
[2024-08-29] MEDS ORDERED: HYDROmorphone (PF) 1 MG/ML ONE (09:00)
[2024-08-29] MEDS ORDERED: DEXAMETHASONE SOD PHOSPHATE 4 MG/ML 1 ML VIAL ONE (09:00)
[2024-08-29] MEDS ORDERED: GLYCOPYRROLATE 0.2 MG/ML 2 ML VIAL ONE (09:00)
[2024-08-29] MEDS: ceFAZolin 1,000 MG in SODIUM CHLORIDE 0.9% 1,000 ML IRRIGATION ONE (09:26)
[2024-08-29] MEDS: ROPIVACAINE 5 MG/ML 30 ML VIAL MISCELLANE ONE ×2 (09:30→10:04)
--- NOTE | 2024-08-29 10:11 | P.OP ---
Date of Procedure: 08/29/24 Preoperative Diagnosis: Severe osteoarthritis right hip Postoperative Diagnosis: Severe osteoarthritis right hip Procedure(s) Performed: Right total hip arthroplasty with a direct anterior approach Implants: [employer] Polarstem standard size 3 with a collar [employer] R3, 3 hole hemispherical acetabular shell, 50 mm [employer] Reflection 6.5 mm cancellus screws, 20 mm 2, 25 mm [employer] R3, XLPE 20 acetabular liner [employer] Oxinium femoral head 36 mm, +0 All components were press-fit. The articulation is Oxinium on polyethylene. Anesthesia: GETA Surgeon: Josep Lopez Transportation Planning Technician #1: Elizabeth Ornelas Estimated Blood Loss (ml): 450 Pathology: none sent Condition: stable Disposition: PACU Indications for Procedure: After failure of conservative treatment we discussed the surgical and nonsurgical treatment options at length. Patient wishes to proceed with a total hip arthroplasty with a direct anterior approach. Complications specific to this procedure were discussed at length, including but not limited to infection, leg length discrepancy, dislocation, nerve injury, and fracture. Covid-19 was also discussed at length with the patient, and they are aware of the current policies and procedures. The patient was given the option of delaying surgery, but they elect to proceed knowing these risks. Patient is aware of all these complications and informed consent was obtained Operative Findings: The operative findings are consistent with severe osteoarthritis of the right hip Description of Procedure: The patient was seen and evaluated in the preoperative area and the consent was reviewed. The operative site was marked with a skin marker. The patient verified the procedure and operative site. A KIERA block was placed by anesthesia in the preoperative area. The patient was then brought to the operating room and given preoperative antibiotics intravenously. 1 g of Tranexamic acid was also given intravenously. A general anesthetic was administered by the anesthesia department. The patient was then placed on the [place] table with the bony prominences well-padded. The hip area was then prepped with a ChloraPrep solution and draped in the usual sterile fashion. A universal timeout was then performed, which confirmed the patient's name, surgical site, ALLERGIES, and procedure being performed on the consent. Next the incision site was located at 1 cm distal and 4 cm lateral to the anterior superior iliac spine. The skin and subcutaneous tissues were sharply incised. Incision was carefully dissected down to the fascia overlying the tensor fascia edward muscle. This fascia was then incised in line with the muscle fibers. Care was taken to stay laterally in order to avoid injuring the lateral femoral cutaneous nerve. Next, using blunt finger dissection, the tensor fascia edward muscle was dissected off its investing fascia. The muscle was then carefully retracted laterally with a cobra retractor over the lateral neck of the femur. Next, the circumflex vessels were identified and cauterized using the Aquamantis device. The anterior hip capsule was then exposed. The capsule was then opened and an inverted T fashion. The retractors were then placed intracapsularly. The retractors were maintained intracapsular throughout the procedure. The proximal femur was then visualized. Fluoroscopic x-rays were then taken in order to evaluate the preoperative leg lengths. A small amount of traction was placed on the leg. The femoral neck was then osteotomized at the appropriate level above the lesser trochanter. A small wedge of bone was then removed from the remaining femoral head. Next, using a corkscrew the femoral head was removed from the acetabulum. On gross visual inspection, the femoral head had complete loss of articular cartilage and multiple periarticular osteophytes. The femoral head was then measured. Attention was then turned to the acetabulum. The acetabulum was exposed and any remaining labrum was excised. Sequential reaming of the acetabulum was performed using fluoroscopic guidance until there was a good bed of bleeding cancellus bone. When the appropriate size was reached, a trial was then placed. The position and fit of the trial was checked with fluoroscopy. The trial was then removed. Then, using fluoroscopic guidance, the final implant was impacted at 20 of anteversion and 40 of abduction, and fully seated in the acetabulum. 3 screws were then placed in the acetabulum. Again fluoroscopy was used to check position of the screws. Next, the liner was then impacted, with a 20 elevated liner located in the anterior superior quadrant. Component locking was confirmed. Attention was then directed to the femur. With the aid of the [place] table, the femur was externally rotated to approximately 130, extended, and adducted under the opposite leg. A side hook was then placed under the proximal femur, and the side hook elevator was used to elevate the proximal femur while releasing the capsule. Retractors were then placed. A capsular release was performed, as well as a release of the conjoined tendon, which afforded excellent visualization of the proximal femur. Next, a box osteotome was used to lateralize the proximal femur. A ladle handler was then used to locate the femoral canal. Sequential broaching was then performed with appropriate size which afforded excellent fixation in the proximal femur. A trial was then placed with appropriate head and neck, and the hip was gently reduced with the aid of the [place] table. Fluoroscopy was then used to check position of the components, as well as to evaluate the leg lengths and offset. The leg lengths and offset were measured as closely as possible to ensure stability of the hip. The hip was then gently dislocated and the trials were then removed. Final implants were then impacted and the hip was again reduced. Final fluoroscopic x-rays confirmed that the components were in anatomic position. The leg lengths and offset were measured and were found to coincide with the trial measurements. The hip was also taken through range of motion, and found to be stable. The hip was then copiously irrigated with antibiotic solution with pulsatile lavage. The hip was then irrigated with Irrisept solution. The soft tissues were then injected with a ropivacaine solution. A second dose of 1 g of Tranexamic acid was also given intravenously. The fascia was then closed with 2-0 strata fix suture. The subcutaneous tissue was closed with 3-0 Vicryl. The subcuticular tissue was closed with 3-0 moncryl suture. The skin was then closed with Exofin skin glue. After the glue and dried, and Optifoam silver impregnated dressing was applied. The patient was then transferred to the recovery room in stable condition. The facility assistant CLIFF Jones was required due to the complexity of surgery, and the need for skilled medical surgical tech for positioning, draping, exposure, retraction, and closure of the wound.
[2024-08-29 10:44] VITALS: TEMP 97
[2024-08-29] MEDS: HYDROmorphone 0.5 MG/0.5 ML SYRINGE IVP PRN (10:49)
--- NOTE | 2024-08-29 11:14 | XR ---
EXAMINATION TYPE: XR Hip Limited RT DATE OF EXAM: 08/29/2024 10:49 AM COMPARISON: AP right hip CLINICAL INDICATION: Female, 64 years old with history of Status post hip surgery, assess surgical al ignment, pain TECHNIQUE: AP view(s) obtained. FINDINGS: Femoral prosthesis and acetabular component are present. No acute fractures are evident. Postsurgical soft tissue changes are evident. IMPRESSION: 1. No acute fracture post right hip replacement [facility], , 08/29/2024 11:11 AM
--- NOTE | 2024-08-29 11:40 | XR ---
Fluoroscopy INDICATION: Pain post right hip replacement FINDINGS: Fluoroscopy time: 58.4 seconds. Total dose area product (DAP) in uGy*m?, mGy*cm? (or similar): 2.4061 Images obtained: 5. Images were obtained over the right hip with placement of a right hip prosthesis. IMPRESSION: 1. Documentation of fluoroscopy. [facility], , 08/29/2024 11:37 AM
--- NOTE | 2024-08-29 12:10 | FL ---
Fluoroscopy INDICATION: Pain FINDINGS: Fluoroscopy time: 54 seconds. Total dose area product (DAP) in uGy*m?, mGy*cm? (or similar): 2.4061 Images obtained: 0. IMPRESSION: 1. Documentation of fluoroscopy. [facility], , 08/29/2024 12:08 PM
[2024-08-29 15:11] VITALS: BP 120/64; PULSE 64; RESP 14
== END 2024-08-29 16:00 | disposition home health service (06) ==
LOC: OR 07:24
PROVIDERS: ATTEND Orthopaedic Surgery
DX: M16.11 Unilateral primary osteoarthritis, right hip (principal); G89.18 Other acute postprocedural pain; I48.20 Chronic atrial fibrillation, unspecified; I10 Essential (primary) hypertension; Z79.01 Long term (current) use of anticoagulants; Z79.899 Other long term (current) drug therapy; Z87.891 Personal history of nicotine dependence
CPT/HCPCS: 27130; 97162; 64999; 73501; C1776; J2250; J0330; J1100; J2710; J0690 ×2; J2405; J2003; J3010; J1171 ×2; J2795; J2704; J1596